=== PATIENT | female | born 1955 | race Caucasian/White ===

== ENCOUNTER 2018-07-22 18:50 | Emergency (ER) | payer OTHER ==
--- OUTSIDE RECORDS SUMMARY | 2018-07-22 18:54 | XMS REPORT | Continuity of Care Document ---
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 Onset: 12/10/2013 Myopia Cedrick Main O.D. Onset: 12/10/2013 Presbyopia Cedrick Main O.D. Onset: 12/10/2013 Low tension glaucoma Cedrick Main O.D. Onset: 01/10/2014 Tear film insufficiency Cedrick Main O.D. Onset: 05/13/2014 Low-tension glaucoma, right eye, mild stage Cedrick Main O.D. Onset: 11/19 Low-tension glaucoma, left eye, mild stage Cedrick Main O.D. Onset: 2014 Family History Date Family Member(s) Observation Comments General Arthritis General Cancer General Cerebrovascular Accident General Thyroid Disease General Grandparent, Sister Father Age-Related Macular Degeneration Father Blindness Mother Cataract Mother High BP Social History Type Date Description Comments Sex Unknown ETOH Use Rarely consumes alcohol Tobacco Use Start: Unknown Patient has never smoked Smoking Status Reviewed: 04/30/19 Patient has never smoked Allergies, Adverse Reactions, Alerts Active Allergies Reaction Severity Comments Date Sulfa Antibiotics 12/10/2013 Medications Active Medications SIG Qnty Indications Ordering Date Provider Latanoprost 1 drops both eyes 7.5units Cedrick Lemon, 11/15/2017 0.005% every night OD Solution Amlodipine Besylate Norvasc Unknown Tablets Propranolol HCL Unknown 20mg Tablets Zantac 75 Unknown Tablets Buspirone HCL Unknown 5mg Tablets Nasonex Unknown 50mcg/Act Suspension Lotronex Gabe Soliz DR 0.5mg Tablets Dicyclomine HCL Gabe Soliz DR 10mg Capsules Propranolol HCL Unknown 40mg Tablets Ranitidine HCL Unknown 300mg Tablets Loperamide HCL Unknown 2mg Capsules Lorazepam Take 1/2 Or 1 Unknown 1mg Tablets Tablet By Mouth AT Bedtime Fo Anxiety / Insomnia Max Roxana History Medications Latanoprost 1 drops both 7.5ml Cedrick Lemon, 11/10/2016 - 0.005% eyes every night OD 11/15/2017 Solution Latanoprost 2 drops QHS OU 5ml Cedrick Lemon, 03/16/2016 - 0.005% please dispense OD 11/10/2016 Solution two bottles monthly! Latanoprost 1 drops both 2.500ml H40.1221 Dakota Sanchez, 01/10/2014 - 0.005% eyes every night M.D. 03/16/2016 Solution Amoxicillin/Clavulan take 1 tablet by Unknown - ate Potassium mouth twice a 01/04/2018 day for 10 days 875-125mg Tablets Immunizations Description No Information Available Vital Signs Date Vital Result Comment 04/06/2018 8:57am Intraocular Pressure Right Eye 15 mmHg Intraocular Pressure Left Eye 15 mmHg 01/04/2018 9:11am Intraocular Pressure Right Eye 14 mmHg Intraocular Pressure Left Eye 15 mmHg 09/27/2017 9:18am Intraocular Pressure Right Eye 12 mmHg Intraocular Pressure Left Eye 13 mmHg 03/17/2017 8:19am Intraocular Pressure Right Eye 12 mmHg Intraocular Pressure Left Eye 11 mmHg 11/10/2016 1:12pm Intraocular Pressure Right Eye 12 mmHg Intraocular Pressure Left Eye 12 mmHg 08/04/2016 9:26am Intraocular Pressure Right Eye 12 mmHg Intraocular Pressure Left Eye 13 mmHg 03/16/2016 9:08am Intraocular Pressure Right Eye 19 mmHg Intraocular Pressure Left Eye 17 mmHg 01/28/2016 8:32am Intraocular Pressure Right Eye 18 mmHg Intraocular Pressure Left Eye 16 mmHg 02/20/2015 9:38am Intraocular Pressure Right Eye 13 mmHg Intraocular Pressure Left Eye 13 mmHg 11/19/2014 8:38am Intraocular Pressure Right Eye 14 mmHg Intraocular Pressure Left Eye 13 mmHg 08/19/2014 8:59am Intraocular Pressure Right Eye 1514 mmHg Intraocular Pressure Left Eye 1413 mmHg 05/13/2014 8:14am Intraocular Pressure Right Eye 12 mmHg Intraocular Pressure Left Eye 12 mmHg 02/11/2014 8:11am Intraocular Pressure Right Eye 16 mmHg missed dose last night Intraocular Pressure Left Eye 12 mmHg 01/10/2014 9:31am Intraocular Pressure Right Eye 15 mmHg Intraocular Pressure Left Eye 15 mmHg Cornea Thickness Left Eye 901558 m Cornea Thickness Right Eye 684142 m Pachymetry adjusted IOP Right Eye +1 Pachymetry adjusted IOP Left Eye +3 12/10/2013 3:55pm Intraocular Pressure Right Eye 16 mmHg Intraocular Pressure Left Eye 16 mmHg Results Description No Information Available Procedures Date Code Description Status 04/06/2018 16426 Fundus Photography W/Interpretation & Report Completed 04/06/2018 40315 Refraction Completed 04/06/2018 06117 Eye Exam Est Intermediate Completed 01/04/2018 24054 Oct, Optic Nerve Completed 01/04/2018 55953 Eye Exam Est Intermediate Completed 09/27/2017 21825 Visual Field Exam Extended, Unilateral Or Bilateral Completed 09/27/2017 29914 Eye Exam Est Intermediate Completed 03/17/2017 38425 Eye Exam Est Comprehensive Completed 03/17/2017 26887 Refraction Completed 03/17/2017 95518 Fundus Photography W/Interpretation & Report Completed 11/10/2016 12080 Oct, Optic Nerve Completed 11/10/2016 09141 Eye Exam Est Intermediate Completed 08/04/2016 06024 Visual Field Exam Extended, Unilateral Or Bilateral Completed 08/04/2016 02476 Eye Exam Est Intermediate Completed 03/16/2016 55992 Fundus Photography W/Interpretation & Report Completed 03/16/2016 40908 Ophthalmoscopy Subsequent Completed 03/16/2016 86399 Refraction Completed 03/16/2016 15683 Eye Exam Est Intermediate Completed 01/28/2016 32121 Eye Exam Est Intermediate Completed 01/28/2016 37565 Oct, Optic Nerve Completed 02/20/2015 87764 Oct, Optic Nerve Completed 02/20/2015 89711 Visual Field Exam Extended, Unilateral Or Bilateral Completed 02/20/2015 99831 Eye Exam Est Intermediate Completed 11/19/2014 04037 Fundus Photography W/Interpretation & Report Completed 11/19/2014 12494 Refraction Completed 11/19/2014 30196 Eye Exam Est Intermediate Completed 11/19/2014 301 Contact Lens Fit $25 Completed 05/13/2014 76777 Eye Exam Est Intermediate Completed 01/10/2014 00899 Corneal Pachymetry, Unilateral/Bilateral Completed 01/10/2014 94322 Eye Exam Est Intermediate Completed 01/10/2014 92937 Gonioscopy Completed 01/10/2014 97202 Visual Field Exam Extended, Unilateral Or Bilateral Completed 01/10/2014 27183 Oct, Optic Nerve Completed 12/10/2013 29192 Fundus Photography W/Interpretation & Report Completed 12/10/2013 93519 Refraction Completed 12/10/2013 68734 Eye Exam New Comprehensive Completed 12/10/2013 301 Contact Lens Fit $25 Completed Encounters Type Date Location Provider Dx Diagnosis Office Visit 08/19/2014 Main Office Cedrick Main, 365.12 Glaucoma Low 8:30a O.D. Tension Office Visit 02/11/2014 Main Office Cedrick Main, 365.12 Glaucoma Low 8:00a O.D. Tension Plan of Treatment 07/04/2018 - Cedrick Lemon, ODH40.1232 Low-tension glaucoma, bilateral, moderate [id number] Age-related nuclear cataract, bilateralFollow up:3 mos VF, sooner PRN
--- OUTSIDE RECORDS SUMMARY | 2018-07-22 18:54 | XMS REPORT | Continuity of Care Document ---
:1955 External Reference #:[id number] Author Name Cedrick Grieron, OD Address [address] [place] [address] Care Team Providers Name Role Phone Aretha Gutierrez MD Care Team Information Supervisor Diagnostic Unavailable Aretha Gutierrez MD Primary Care Physician Unavailable Payers Date Identification Numbers Payment Provider Subscriber Effective: 2013 Policy Number: [id number] [employer] Nedra Remy PayID: [id number] [address] [place] [address] Advance Directives Description No Information Available Problems [...] Ordering Date Provider Latanoprost 1 drops both 7.5units Cedrick Lemon, 11/15/2017 0.005% eyes every night OD Solution Desloratadine take 1 tablet by Unknown 5mg mouth once daily Tablets Lorazepam Take 1/2 Or 1 Unknown 1mg Tablets Tablet By Mouth AT Bedtime Fo Anxiety / Insomnia Max Roxana Loperamide HCL Unknown 2mg Capsules Ranitidine HCL Unknown 300mg Tablets Propranolol HCL Unknown 40mg Tablets Dicyclomine HCL Gabe Soliz DR 10mg Capsules Lotronex Gabe Soliz DR 0.5mg Tablets Nasonex Unknown 50mcg/Act Suspension Buspirone HCL Unknown 5mg Tablets Zantac 75 Unknown Tablets Propranolol HCL Unknown 20mg Tablets Amlodipine Besylate Norvasc Unknown Tablets History Medications Latanoprost 1 drops both 7.5ml [...] Available Vital Signs Date Vital Result Comment 07/04/2018 8:39am Intraocular Pressure Right Eye 14 mmHg Intraocular Pressure Left Eye 14 mmHg 04/06/2018 8:57am Intraocular Pressure Right Eye 15 [...] Eye 15 mmHg Cornea Thickness Left Eye 163876 m Cornea Thickness Right Eye 549963 m Pachymetry adjusted IOP Right Eye +1 Pachymetry adjusted IOP Left Eye +3 12/10/2013 3:55pm Intraocular Pressure Right Eye 16 mmHg Intraocular Pressure Left Eye 16 mmHg Results Description No Information Available Procedures Date Code Description Status 07/04/2018 94636 Eye Exam Est Intermediate Completed 04/06/2018 61744 Fundus Photography W/Interpretation & Report Completed 04/06/2018 95111 Refraction Completed 04/06/2018 17740 Eye Exam Est Intermediate Completed 01/04/2018 50800 Oct, Optic Nerve Completed 01/04/2018 58395 Eye Exam Est Intermediate Completed 09/27/2017 65874 Visual Field Exam Extended, Unilateral Or Bilateral Completed 09/27/2017 54020 Eye Exam Est Intermediate Completed 03/17/2017 32349 Eye Exam Est Comprehensive Completed 03/17/2017 99346 Refraction Completed 03/17/2017 23454 Fundus Photography W/Interpretation & Report Completed 11/10/2016 80627 Oct, Optic Nerve Completed 11/10/2016 79177 Eye Exam Est Intermediate Completed 08/04/2016 05153 Visual Field Exam Extended, Unilateral Or Bilateral Completed 08/04/2016 43947 Eye Exam Est Intermediate Completed 03/16/2016 71428 Fundus Photography W/Interpretation & Report Completed 03/16/2016 12917 Ophthalmoscopy Subsequent Completed 03/16/2016 25738 Refraction Completed 03/16/2016 52244 Eye Exam Est Intermediate Completed 01/28/2016 20494 Eye Exam Est Intermediate Completed 01/28/2016 93024 Oct, Optic Nerve Completed 02/20/2015 96511 Oct, Optic Nerve Completed 02/20/2015 74385 Visual Field Exam Extended, Unilateral Or Bilateral Completed 02/20/2015 93055 Eye Exam Est Intermediate Completed 11/19/2014 29960 Fundus Photography W/Interpretation & Report Completed 11/19/2014 81115 Refraction Completed 11/19/2014 52505 Eye Exam Est Intermediate Completed 11/19/2014 301 Contact Lens Fit $25 Completed 05/13/2014 18671 Eye Exam Est Intermediate Completed 01/10/2014 88446 Corneal Pachymetry, Unilateral/Bilateral Completed 01/10/2014 09111 Eye Exam Est Intermediate Completed 01/10/2014 74065 Gonioscopy Completed 01/10/2014 45883 Visual Field Exam Extended, Unilateral Or Bilateral Completed 01/10/2014 02767 Oct, Optic Nerve Completed 12/10/2013 72584 Fundus Photography W/Interpretation & Report Completed 12/10/2013 11411 Refraction Completed 12/10/2013 91445 Eye Exam New Comprehensive Completed 12/10/2013 301 Contact Lens Fit $25 Completed Encounters Type Date Location Provider Dx Diagnosis Office Visit 08/19/2014 Main Office Cedrick Main, 365.12 Glaucoma Low 8:30a O.D. Tension Office Visit 02/11/2014 Main Office Cedrick Main, 365.12 Glaucoma Low 8:00a O.D. Tension Plan of Treatment 07/04/2018 - Cedrick Lemon, ODH40.1232 Low-tension glaucoma, bilateral, moderate [id number] Age-related nuclear cataract, bilateralFollow up:3 mos VF, sooner PRN
--- OUTSIDE RECORDS SUMMARY | 2018-07-22 18:55 | XMS REPORT | Continuity of Care Document ---
:1955 External Reference #:[id number] Author Name CLIFFORD Shea Address [address] [facility] [place] [address] Care Team Providers Name Role Phone Aretha Gutierrez Care Team Information Pocket Marker Unavailable Aretha Gutierrez Primary Care Physician Unavailable Payers Date Identification Numbers Payment Provider Subscriber Effective: 2017 Policy Number: [id number] Howie Haddad Pre-Medicare Nedra Ruffin Group Number: [id number] [address] PayID: [id number] [place] [address] Effective: 2017 Policy Number: [id number] Erlinmala Ruffin Expires: 2017 PayID: [id number] [address] [place] [address] Effective: 2012 Policy Number: [id number] [facility] Ex[facility]: 2017 Group Number: [id number] [id number] Group Name: [facility] [place] [address] PayID: [id number] Advance Directives Description No Information Available Problems Active Problems Provider Date Essential hypertension Marixa Sanders M.D. Onset: 12/04/2010 Anxiety state Marixa Sanders M.D. Onset: 12/04/2010 Essential tremor Marixa Sanders M.D. Onset: 12/04/2010 Impaired fasting glycaemia Marixa Sanders M.D. Onset: 01/08/2011 Enthesopathy Marixa Sanders M.D. Onset: 01/08/2011 Irritable bowel syndrome Aretha Gutierrez M.D. Onset: 03/16/2013 Gastroesophageal reflux disease Aretha Gutierrez M.D. Onset: 03/16/2013 Allergic rhinitis Aretha Gutierrez M.D. Onset: 03/16/2013 Psoriasis Aretha Gutierrez M.D. Onset: 01/28/2015 Acute sinusitis Mark West M.D. Onset: 11/02/2016 Low tension glaucoma Aretha Gutierrez M.D. Onset: 09/09/2016 Family History Date Family Member(s) Observation Comments General No fam hx lung,colon, breast CA. no uterine, ovarian, cervical ca. No DM Father due to MA () - age 75. out of the blue. Mother Hypertension Mother Anxiety Number of Children 3 First Daughter Wilda First Daughter goiter. Second Daughter Priya Second Daughter asthma Third Daughter Merari Number of Siblings Siblings: 4 Order Patient is the oldest of five children. No MA, DM. Some arthritis Number of Grandchildren 7, 4 grandsons and 3 granddaughters Paternal Grandfather due to MA () - at age 69 Paternal Grandmother due to Pulmonary () Embolus Maternal Grandfather due to Stroke () Maternal Grandmother Rheumatoid Arthritis Social History Type Date Description Comments Sex Unknown Marital Status Patient is Living Situation Lives with spouse. 2 daughters in the area, 1 in [place]. 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 Recreational Drug Use Denies Drug Use Tobacco Use Start: Unknown Nonsmoker Smoking Status Reviewed: 06/28/18 Nonsmoker Exercise Type/Frequency Exercises regularly lots Current of yardwork. Allergies, Adverse Reactions, Alerts Active Allergies Reaction Severity Comments Date Sulfa 12/29/2009 Zoloft made symptoms worse, more diarrhea 11/20/2012 Inactive Allergies Nka 04/14/1998 Medications Active Medications SIG Qnty Indications Ordering Date Provider Amoxicillin/Clavulana 1 by mouth twice 20tabs J01.90 Donnie Hogue, te Potassium a day x 10 M.D. 875-125mg Tablets Soluble Take one daily. K58.0 Donnie Hogue, 06/28/2018 Fiber/Probiotics M.D. Chewtabs Shingrix inject subq. 2units Z23 Aretha Simons 11/03/2017 50mcg repeat injection Jarrell Gutierrez Suspension Rec from 2-6 months after first injection Entex T 1 po q 12 hrs prn 90tabs J01.90 Brenna 06/10/2017 60-375mg nasal congestion Keanu, AR MANAGER Tablets Buspirone HCL 1 by mouth twice 60tabs F41.9 Carmen Mirna 09/09/2016 7.5mg daily Ware, REVENUE MANAGER Tablets Desoximetasone use as directed 60gm Aretha Simons 06/06/2014 0.25% on affected Jarrell Gutierrez Cream areas. Dicyclomine HCL take 1 capsule by 120caps K58.0 Aretha Simons 05/16/2013 10mg mouth four times Jarrell Gutierrez Capsules a day Prior To Meals And AT Bedtime as Needed For Irritable Bowel Symptoms Lorazepam take 1/2 or 1 tab 40tabs F43.22 Aretha Simons 11/08/2012 1mg Tablets by mouth at Jarrell Gutierrez bedtime for anxiety/insomnia Ranitidine HCL 1 by mouth every 30tabs Aretha Simons 07/10/2012 300mg day Jarrell Gutierrez Tablets Propranolol HCL take one tablet 60tabs Aretha Simons 12/04/2010 40mg by mouth twice a Jarrell Gutierrez Tablets day Clarinex 1 po qd 30tabs Donnie Hogue, 08/20/2004 5mg Tablets Jarrell Nasonex 2 sprays each 1units Maribel Estrada, 11/22/2000 50mcg/Act nostril every day AR MANAGER Suspension Norvasc 1/2 tab every day 15tabs Carmen Mirna 10mg Tablets Ware, REVENUE MANAGER Latanoprost instill 1 drop 2.5units Unknown 0.005% into both eyes at Solution bedtime Loperamide HCL take 1 capsule by kasia Simons 2mg mouth once daily Jarrell Gutierrez Capsules History Medications Amoxicillin/Clavulanate 1 by mouth 20tabs J01.90 Mamadou Acosta 01/23/2018 - Potassium twice a day x MD Raffi 06/28/2018 875-125mg Tablets 10 Amoxicillin/Clavulanate 1 by mouth 28tabs J01.90 Brenna 06/10/2017 - Potassium twice a day x Keanu, AR MANAGER 11/02/2017 875-125mg Tablets 10-14 days Amoxicillin/Clavulanate 1 by mouth 28tabs J01.90 Carmen Bradley 02/07/2017 - Potassium twice a day x JULIO CÉSAR Ware 06/10/2017 875-125mg Tablets 10-14 days Levofloxacin 1 by mouth 10tabs J01.80 Mark Acosta 11/02/2016 - 500mg Tablets every day Jarrell West 02/07/2017 Zostavax inject subq Aretha Simons 09/09/2016 - 05558Nzv/0.65ML Suspension Jarrell Gutierrez 06/10/2017 Rec Amoxicillin/Clavulanate 1 by mouth tabs J01.80 Aretha Simons 09/09/2016 - Potassium twice a day x Jarrell Gutierrez 11/02/2016 875-125mg Tablets 10-14 days Tamiflu 1 by mouth 10caps Brenna 04/26/2016 - 75mg Capsules twice a day [facility], [facility] 09/09/2016 Amoxicillin/Clavulanate 1 by mouth 28tabs R05 Brenna 04/26/2016 - Potassium twice a day [facility], [facility] 09/09/2016 875-125mg Tablets with food x 14d Amoxicillin/Clavulanate 1 by mouth 28tabs J01.90 Maribel Estrada, 02/12/2016 - Potassium twice a day [facility] 04/26/2016 875-125mg Tablets with food x 14d Amoxicillin/Clavulanate 1 by mouth 20tabs J01.90 Maribel Estrada, 08/14/2015 - Potassium twice a day [facility] 02/12/2016 875-125mg Tablets with food Xifaxan 1 by mouth 3 14tabs K58.0 Aretha Simons 06/03/2015 - 550mg Tablets times daily x Jarrell Gutierrez 08/14/2015 14 days. Vitamin D (Ergocalciferol) take 1 capsule 8caps Aretha Simons 04/05/2015 - by mouth once Jarrell Gutierrez 11/02/2016 [id number] Capsules weekly for 8 weeks. Methylprednisolone (Loc) take as 1pack 461.0 Brenna 11/29/2014 - 4mg directed [facility] 01/28/2015 Tablets Amoxicillin/Clavulanate take one tab by 20tabs 461.0 Entriken 11/29/2014 - Potassium mouth twice a [facility], [facility] 01/28/2015 875-125mg Tablets day x 10 days Amoxicillin/Clavulanate 1 by mouth 20tabs 461.0 Julianne Sullivan, 09/20/2014 - Potassium twice a day x REVENUE MANAGER 09/30/2014 875-125mg Tablets 10 days Desoximetasone Cream use on affected 60gm Aretha Simons 06/06/2014 - 0.25% areas as Jarrell Gutierrez 06/06/2014 directed Amoxicillin/Clavulanate 1 po bid x 10 20tabs 461.9 Jena Crane, 2013 - Potassium days Nguyễn 05/26/2013 875-125mg Tablets Off Work 11/21 And . 564.1 Aretha Simons 11/20/2012 - Medical Excuse. Jarrell Gutierrez 03/16/2013 Miralax 17 gm powder in 1Bottle K58.0 Entriken 11/08/2012 - 3350NF Powder fluid daily, as Keanu, [facility] 11/02/2016 needed Sertraline HCL 1 po qd 60tabs 311 Brenna 11/08/2012 - 50mg Tablets [facility] 11/20/2012 TENS Unit to use as 1units Jena Crane, 05/11/2012 - [facility] directed dx: Nguyễn 05/31/2012 torticollis 723.5 Augmentin 1 po bid with 14tabs Mamadou Lazo 04/25/2012 - 500-125mg Tablets meals Jarrell Gallagher 11/20/2012 Cyclobenzaprine HCL 1 po tid prn 20tabs Jena Crane, 11/09/2011 - 10mg Tablets for muscle Afnp-C 03/19/2014 spasm Naproxen 1 po tid prn 60tabs 723.5 Jena Crane, 10/28/2011 - 375mg Tablets Afnp-C 03/19/2014 Physical Therapy treatment and 723.5 Jena Crane, 10/28/2011 - evaluation of Afnp-C 01/13/2012 neck pain/ torticollis Amoxicillin/Clavulanate 1 po bid for 10 20tabs Esequiel Conway 04/23/2011 - Potassium harleen Salter M.D. 05/03/2011 875-125mg Tablets Buspirone HCL take 2 tab by 60tabs F41.9 Aretha Simons 08/20/2010 - 5mg Tablets mouth daily Jarrell Gutierrez 09/09/2016 Cipro 1 po bid for 5 10tabs Brenna goetz 12/30/2009 - 500mg Tablets harleen Guzman M.D. 12/04/2010 Bactrim DS 1 po bid 20tabs Mark Acosta 05/27/2008 - 800-160 Tablets Jarrell West 12/29/2009 Levaquin 1 po qd for 10 10tabs Mamadou Lazo 04/09/2008 - 500mg Tablets harleen Gallagher M.D. 05/23/2008 Augmentin 1 po bid with 28tabs 461.9 Maribel Estrada 02/14/2008 - 875mg Tablets food x 14D AR MANAGER 03/12/2008 Note For Work please excuse 729.5 Darrell Ayala 02/04/2007 - from work until Jarrell Eid 02/14/200802/09 due to an injury. able to return 02/09 without restriction. thanks Dovonex Scalp apply bid as 60ml Brenna von 04/27/2006 - 0.005% Marcia'n Directed, as Jarrell Guzman 11/02/2016 needed Augmentin 1 PO bid 20tabs Vangie 01/04/2006 - [facility] Take Afnp-C With Food HCTZ 1 PO qd 30units Brenna goetz 08/12/2005 - 12.5mg Jarrell Guzman 12/04/2010 Robitussin A-C 1-2 tsp po q 120cc Vangie 06/04/2005 - 100mg;10mg/5ML Syrup 4hrs prn cough Oksana, 07/11/2007 Afnp-C Levaquin 1 po qd 14tabs Brenna goetz 03/31/2005 - 500mg Tablets Jarrell Guzman 06/04/2005 Mucinex 600 MG 1-2 PO 20units Brenna goetz 03/31/2005 - bid Jarrell Guzman 06/04/2005 Levaquin 1 PO qd X 14D 14tabs Maribel Estrada, 01/14/2005 - 500mg Tablets AR MANAGER 02/12/2005 Flexeril 1 PO tid prn 30tabs Maribel Estrada, 01/14/2005 - 10mg Tablets Muscle Spasm AR MANAGER 03/31/2005 Levaquin 1 qd 10units Mamadou Lazo 06/15/2004 - 500mg Jarrell Gallagher 03/31/2005 Levaquin 1 qd x10 days 10units Vangie 03/31/2004 - 500mg [place], 06/12/2004 Afnp-C Augmentin 1 bid 20units Jena Crane, 02/28/2004 - 500mg Afnp-C 03/31/2004 Augmentin 1 bid For 10 20units Maribel Estrada, 08/20/2003 - 500mg Days AR MANAGER 08/30/2003 Levaquin 1 qd 7units Maribel Estrada, 08/02/2003 - 500mg AR MANAGER 03/24/2004 Norflex 1 po bid 30units Kvng Lazo 03/25/2003 - 100mg Jarrell Lemons 03/24/2004 Levaquin 1 qd 10units Kvng Lazo 03/25/2003 - 500mg Jarrell Lemons 04/04/2003 Iron Tab OTC 1 PO bid 100units Kvng Lazo 09/13/2002 - 325mg Jarrell Lemons 03/31/2005 Ciprofloxacin bid.3 Days 6units Naldo Chu 11/28/2001 - 500mg Jarrell Quevedo 12/01/2001 Entex Pse 1 bid prn 20units Jena Crane, 07/03/2001 - Congestion Afnp-C 07/13/2001 Amoxicillin 1 Tablet 3 30tabs Vangie 07/03/2001 - 500mg Tablets Times Daily Jocelynnthaddeus, 07/20/2007 Afnp-C Out Of Work Will Be Out Of Naldo Chu 02/22/2001 - Work From Jarrell Quevedo 04/03/2001 02/09/01 Until Seen By A Vascular Specialist Out Of Work Until Out Of Work Naldo Chu 02/16/2001 - Until Jarrell Quevedo 03/08/2001 Re-Eval 02/22/01 Return To Work May Return To Naldo Chu 02/14/2001 - Work Jarrell Quevedo 03/06/2001 On 02/20/01 Motrin 1 tid 90units 729.5 Brennagary goetz 02/07/2001 - 600mg Jarrell Guzman 12/29/2009 Zithromax 2 Tabs Day 1 6units Jena Crane, 11/22/2000 - 250mg Afjulio césar-C 11/27/2000 1 Tab qd Days 2 Thru 5 Entex Pse 1 bid prn 20units Jena Gonzaleze, 11/22/2000 - Congestion Afnp-C 12/06/2000 Augmentin 1 PO bid 20units Donnie Ayala 08/05/2000 - 500mg Jarrell Hogue 08/15/2000 Duravent Da 1 PO bid 20units Donnie Ayala 08/05/2000 - Jarrell Hogue 08/15/2000 Dovonex apply to rash 60GR Mamadou Lazo 12/19/1999 - .005% qd Jarrell Gallagher 04/27/2006 Z-Pack as Directed Naldo Chu 12/19/1999 - Jarrell Quevedo 08/05/2000 Levaquin 1 qd 14units Mark Acosta 11/20/1999 - 500mg Jarrell West 05/27/2008 Buspar I bid prn 60units Maribel Estrada, 11/04/1999 - 5mg AR MANAGER 03/31/2005 Zithromax 2 Tabs Day 1 6unreyna BlountEliot 11/04/1999 - 250mg Jarrell Quevedo 11/14/1999 1 Tab qd Days 2 Thru 5 Zyrtec 1 PO qd prn 15tabs Maribel Santiagor, 05/07/1999 - 10mg Tabs AR MANAGER 05/22/1999 Medrol Dosepack as Directed 1units Maribel Estrada, 04/29/1999 - 4mg AR MANAGER 05/05/1999 Desoximetasone Cream use on affected 60gm Aretha PrakashEliot 04/29/1999 - 0.25% areas as Jarrell Gutierrez 06/06/2014 directed Zithromax 2 Tabs Day 1 6unreyna BlountEliot 10/15/1998 - 250mg Jarrell Quevedo 10/25/1998 1 Tab qd Days 2 Thru 5 Dovonex Apply To Rash 30gm Naldo BlountEliot 04/23/1998 - .005% qd Jarrell Queveod 05/21/1998 Z-Pack as Dir 1unreyna Hitchcock Kimberley 04/03/1998 - Jarrell Quevedo 04/10/1998 Tessalon Pearls 1 PO tid prn 20tabs Vangie 03/31/1998 - 100mg Tabs For Cough [facility], 04/10/1998 Afnp-C Entex Pse 1 PO Q 12 HRS 20tabs Naldo BlountEliot 03/31/1998 - Tabs prn Head Jarrell Quevedo 04/14/1998 Congestion Zithromax 2 Tabs Day 1 6units Libertad Dickinson, 08/02/1997 - 250mg [employer]UPATIONS INSTRUCTOR-F 08/07/1997 1 Tab qd Days 2 Thru 5 Zantac one qhs 30units Aretha PrakashEliot 07/11/1997 - 300mg Jarrell Gutierrez 07/10/2012 Zantac 1 PO Q hs 30units Libertad Dickinson, 06/07/1997 - 300mg [employer] OCCUPATIONS INSTRUCTOR-F 07/07/1997 Immunizations CPT Code Status Date Vaccine Lot # [id number] Given 11/03/2017 Tdap Tetanus, W Pertussis [id number] Given 03/19/2014 Influenza Vac, Quadrivalent, Slit Virus, Im [id number] 99605 Given 12/20/2012 DO Not Use Split Influenza Virus Vaccine [id number] 96539 Given 01/07/2012 DO Not Use Split Influenza Virus Vaccine 43325 Given 12/29/2009 DO Not Use Split Influenza Virus Vaccine [id number] 27077 Given 02/08/2009 DO Not Use Split Influenza Virus Vaccine [id number] 44718 Given 10/06/2007 Tetanus And Diptheria Adult Preservative Free >7Yrs Vital Signs Date Vital Result Comment 06/28/2018 8:06am BP Systolic 130 mmHg BP Diastolic 80 mmHg Heart Rate 64 /min Body Temperature 97.7 F Respiratory Rate 16 /min Weight 139.00 lb 01/23/2018 10:43am BP Systolic 128 mmHg BP Diastolic 70 mmHg Heart Rate 68 /min Body Temperature 97.7 F Respiratory Rate 18 /min Weight 139.00 lb 11/03/2017 12:59pm BP Systolic 114 mmHg BP Diastolic 72 mmHg Heart Rate 70 /min Body Temperature 97.7 F Height 65 inches 5'5" Weight 137.00 lb BMI (Body Mass Index) 22.8 kg/m2 06/10/2017 2:35pm BP Systolic 110 mmHg BP Diastolic 82 mmHg Heart Rate 73 /min Body Temperature 97.9 F Weight 137.38 lb 02/07/2017 10:43am BP Systolic 130 mmHg BP Diastolic 80 mmHg Heart Rate 64 /min Body Temperature 98.1 F Height 65 inches 5'5" Weight 134.00 lb BMI (Body Mass Index) 22.3 kg/m2 11/02/2016 2:05pm BP Systolic 138 mmHg BP Diastolic 80 mmHg Heart Rate 68 /min Body Temperature 98.4 F Respiratory Rate 16 /min Height 65 inches 5'5" Weight 138.12 lb BMI (Body Mass Index) 23.0 kg/m2 09/09/2016 12:57pm BP Systolic 120 mmHg BP Diastolic 70 mmHg Heart Rate 60 /min Body Temperature 98.1 F Respiratory Rate 18 /min Height 65 inches 5'5" Weight 137.00 lb BMI (Body Mass Index) 22.8 kg/m2 04/26/2016 9:10am BP Systolic 110 mmHg BP Diastolic 72 mmHg Heart Rate 64 /min Body Temperature 98.8 F Respiratory Rate 16 /min Weight 139.00 lb 02/12/2016 12:55pm BP Systolic 120 mmHg BP Diastolic 70 mmHg Heart Rate 64 /min Body Temperature 97.8 F Respiratory Rate 16 /min Weight 139.38 lb 08/14/2015 2:04pm BP Systolic 112 mmHg BP Diastolic 80 mmHg Heart Rate 64 /min Body Temperature 97.9 F Respiratory Rate 16 /min Weight 139.00 lb 06/03/2015 3:15pm BP Systolic 120 mmHg BP Diastolic 80 mmHg Heart Rate 64 /min Body Temperature 98.4 F Respiratory Rate 18 /min Weight 140.00 lb 04/01/2015 9:37am BP Systolic 110 mmHg BP Diastolic 80 mmHg Heart Rate 68 /min Body Temperature 97.9 F Respiratory Rate 16 /min Height 64.5 inches 5'4.50" Weight 136.00 lb BMI (Body Mass Index) 23.0 kg/m2 01/28/2015 9:00am BP Systolic 120 mmHg BP Diastolic 86 mmHg Heart Rate 68 /min Body Temperature 98.4 F Respiratory Rate 16 /min Height 64.5 inches 5'4.50" Weight 135.00 lb BMI (Body Mass Index) 22.8 kg/m2 11/29/2014 8:20am BP Systolic 120 mmHg BP Diastolic 80 mmHg Heart Rate 66 /min Body Temperature 97.1 F Respiratory Rate 16 /min Height 65 inches 5'5" Weight 136.25 lb BMI (Body Mass Index) 22.7 kg/m2 09/20/2014 1:38pm BP Systolic 120 mmHg BP Diastolic 80 mmHg Heart Rate 64 /min Body Temperature 98.2 F Respiratory Rate 16 /min Height 65 inches 5'5" Weight 135.00 lb BMI (Body Mass Index) 22.5 kg/m2 03/19/2014 9:45am BP Systolic 130 mmHg BP Diastolic 90 mmHg Heart Rate 62 /min Body Temperature 97.2 F Respiratory Rate 16 /min Height 65 inches 5'5" Weight 133.25 lb BMI (Body Mass Index) 22.2 kg/m2 05/16/2013 10:21am BP Systolic 124 mmHg BP Diastolic 76 mmHg Heart Rate 68 /min Body Temperature 97.7 F Respiratory Rate 18 /min O2 % BldC Oximetry 98 % Height 65 inches 5'5" Weight 136.00 lb BMI (Body Mass Index) 22.6 kg/m2 03/16/2013 9:11am BP Systolic 126 mmHg BP Diastolic 80 mmHg Heart Rate 66 /min Body Temperature 98.0 F Respiratory Rate 16 /min Height 65 inches 5'5" Weight 136.12 lb BMI (Body Mass Index) 22.6 kg/m2 12/20/2012 7:59am BP Systolic 122 mmHg BP Diastolic 78 mmHg Heart Rate 64 /min Body Temperature 98.1 F Height 65 inches 5'5" Weight 138.00 lb BMI (Body Mass Index) 23.0 kg/m2 11/20/2012 6:08pm BP Systolic 136 mmHg BP Diastolic 80 mmHg Heart Rate 66 /min Body Temperature 98.0 F Respiratory Rate 16 /min Height 65 inches 5'5" Weight 140.00 lb BMI (Body Mass Index) 23.3 kg/m2 11/08/2012 8:04am BP Systolic 138 mmHg BP Diastolic 84 mmHg Heart Rate 66 /min Body Temperature 97.4 F Respiratory Rate 18 /min Height 65 inches 5'5" Weight 141.00 lb BMI (Body Mass Index) 23.5 kg/m2 08/07/2012 8:07am BP Systolic 140 mmHg BP Diastolic 82 mmHg Heart Rate 60 /min Body Temperature 97.0 F Height 65 inches 5'5" Weight 141.00 lb BMI (Body Mass Index) 23.5 kg/m2 04/25/2012 9:53am BP Systolic 130 mmHg BP Diastolic 84 mmHg Heart Rate 72 /min Body Temperature 98.8 F Respiratory Rate 16 /min Height 65 inches 5'5" Weight 142.00 lb BMI (Body Mass Index) 23.6 kg/m2 01/13/2012 9:50am BP Systolic 142 mmHg BP Diastolic 82 mmHg Heart Rate 68 /min Body Temperature 97.6 F Height 64.5 inches 5'4.50" Weight 142.00 lb BMI (Body Mass Index) 24.0 kg/m2 10/28/2011 10:52am BP Systolic 124 mmHg BP Diastolic 80 mmHg Heart Rate 64 /min Height 65.4 inches 5'5.40" Weight 142.50 lb BMI (Body Mass Index) 23.4 kg/m2 04/23/2011 3:42pm BP Systolic 130 mmHg BP Diastolic 80 mmHg Heart Rate 64 /min Body Temperature 97.3 F Height 65.4 inches 5'5.40" Weight 141.00 lb BMI (Body Mass Index) 23.2 kg/m2 01/08/2011 10:15am BP Systolic 130 mmHg BP Diastolic 82 mmHg Heart Rate 54 /min Body Temperature 97.0 F O2 % BldC Oximetry 99 % Height 65.4 inches 5'5.40" Weight 138.00 lb BMI (Body Mass Index) 22.7 kg/m2 12/04/2010 7:59am BP Systolic 130 mmHg BP Diastolic 80 mmHg Heart Rate 80 /min Body Temperature 97.5 F Respiratory Rate 20 /min Height 65.4 inches 5'5.40" Weight 135.00 lb BMI (Body Mass Index) 22.2 kg/m2 12/29/2009 10:53am BP Systolic 136 mmHg BP Diastolic 76 mmHg Heart Rate 84 /min Body Temperature 98.3 F Height 65.5 inches 5'5.50" Weight 135.00 lb BMI (Body Mass Index) 22.1 kg/m2 05/23/2008 3:08pm BP Systolic 132 mmHg BP Diastolic 80 mmHg Heart Rate 78 /min Body Temperature 97.9 F Weight 138.00 lb 04/09/2008 9:58am BP Systolic 100 mmHg BP Diastolic 70 mmHg Heart Rate 60 /min Body Temperature 98.2 F Weight 135.00 lb 02/14/2008 9:14am BP Systolic 126 mmHg BP Diastolic 78 mmHg Heart Rate 80 /min Body Temperature 98.1 F Height 65.5 inches 5'5.50" Weight 138.00 lb BMI (Body Mass Index) 22.6 kg/m2 07/04/2007 9:42am BP Systolic 120 mmHg BP Diastolic 80 mmHg Body Temperature 98.5 F Height 65.5 inches 5'5.50" Weight 140.00 lb BMI (Body Mass Index) 22.9 kg/m2 02/04/2007 12:40pm BP Systolic 120 mmHg BP Diastolic 80 mmHg Heart Rate 72 /min Body Temperature 98.2 F Height 65.5 inches 5'5.50" Weight 139.00 lb BMI (Body Mass Index) 22.8 kg/m2 05/24/2006 4:53pm BP Systolic 136 mmHg BP Diastolic 84 mmHg Body Temperature 98.1 F Height 65.5 inches 5'5.50" 01/04/2006 11:15am BP Systolic 128 mmHg BP Diastolic 80 mmHg Body Temperature 98.7 F Height 65.5 inches 5'5.50" Weight 140.00 lb BMI (Body Mass Index) 22.9 kg/m2 08/31/2005 10:01am BP Systolic 120 mmHg BP Diastolic 80 mmHg Heart Rate 80 /min Height 65.5 inches 5'5.50" Weight 134.00 lb BMI (Body Mass Index) 22.0 kg/m2 08/12/2005 11:34am BP Systolic 150 mmHg BP Diastolic 100 mmHg Heart Rate 88 /min Height 65.5 inches 5'5.50" Weight 137.00 lb BMI (Body Mass Index) 22.4 kg/m2 06/04/2005 9:39am BP Systolic 130 mmHg BP Diastolic 88 mmHg Heart Rate 76 /min Body Temperature 98.1 F Height 65.5 inches 5'5.50" 03/31/2005 5:20pm BP Systolic 120 mmHg BP Diastolic 74 mmHg Heart Rate 76 /min Body Temperature 97.8 F Height 65.5 inches 5'5.50" 01/14/2005 4:27pm BP Systolic 122 mmHg BP Diastolic 74 mmHg Heart Rate 78 /min Height 65.5 inches 5'5.50" Weight 133.00 lb BMI (Body Mass Index) 21.8 kg/m2 06/15/2004 10:08am BP Systolic 120 mmHg BP Diastolic 70 mmHg Heart Rate 72 /min Body Temperature 98.8 F Height 65.5 inches 5'5.50" Weight 130.00 lb BMI (Body Mass Index) 21.3 kg/m2 06/02/2004 1:13pm BP Systolic 128 mmHg BP Diastolic 80 mmHg Heart Rate 72 /min Body Temperature 98.5 F Height 65.5 inches 5'5.50" Weight 130.00 lb BMI (Body Mass Index) 21.3 kg/m2 03/24/2004 11:14am BP Systolic 120 mmHg BP Diastolic 70 mmHg Heart Rate 76 /min Body Temperature 97.9 F O2 % BldC Oximetry 94 % Height 65.5 inches 5'5.50" Weight 134.00 lb BMI (Body Mass Index) 22.0 kg/m2 02/28/2004 10:49am BP Systolic 138 mmHg BP Diastolic 80 mmHg Heart Rate 72 /min Body Temperature 98.1 F Height 65.5 inches 5'5.50" 08/02/2003 3:24pm BP Systolic 140 mmHg BP Diastolic 90 mmHg Body Temperature 97.1 F Height 65.5 inches 5'5.50" Weight 126.00 lb BMI (Body Mass Index) 20.6 kg/m2 05/28/2003 4:25pm BP Systolic 120 mmHg BP Diastolic 70 mmHg Heart Rate 80 /min Body Temperature 98.3 F Height 65.5 inches 5'5.50" Weight 130.00 lb BMI (Body Mass Index) 21.3 kg/m2 09/12/2002 10:54am BP Systolic 148 mmHg BP Diastolic 90 mmHg Heart Rate 84 /min Body Temperature 97.1 F Height 65.5 inches 5'5.50" Weight 127.00 lb BMI (Body Mass Index) 20.8 kg/m2 05/09/2002 10:33am BP Systolic 146 mmHg BP Diastolic 90 mmHg Heart Rate 92 /min Body Temperature 97.7 F Height 65.5 inches 5'5.50" Weight 127.00 lb BMI (Body Mass Index) 21.1 kg/m2 Right Visual Acuity Distance 20/50 Left Visual Acuity Distance 20/25 11/28/2001 11:22am BP Systolic 136 mmHg BP Diastolic 90 mmHg Body Temperature 97.6 F Height 65 inches 5'5" Weight 127.50 lb BMI (Body Mass Index) 21.3 kg/m2 07/03/2001 3:20pm BP Systolic 132 mmHg BP Diastolic 90 mmHg Body Temperature 97.9 F Height 65 inches 5'5" Weight 128.00 lb BMI (Body Mass Index) 21.3 kg/m2 02/22/2001 11:38am BP Systolic 142 mmHg BP Diastolic 98 mmHg Body Temperature 97.1 F Height 65 inches 5'5" Weight 126.00 lb BMI (Body Mass Index) 21.0 kg/m2 02/07/2001 1:15pm BP Systolic 146 mmHg BP Diastolic 90 mmHg Heart Rate 94 /min Height 65 inches 5'5" Weight 126.00 lb BMI (Body Mass Index) 21.0 kg/m2 11/22/2000 8:59am BP Systolic 142 mmHg BP Diastolic 70 mmHg Body Temperature 99.4 F Height 65 inches 5'5" Weight 129.00 lb BMI (Body Mass Index) 21.5 kg/m2 10/14/2000 3:01pm BP Systolic 122 mmHg BP Diastolic 80 mmHg Heart Rate 82 /min Height 65 inches 5'5" Weight 126.00 lb BMI (Body Mass Index) 21.0 kg/m2 08/05/2000 2:41pm BP Systolic 132 mmHg BP Diastolic 90 mmHg Body Temperature 98.5 F Height 65 inches 5'5" Weight 128.00 lb BMI (Body Mass Index) 21.3 kg/m2 11/04/1999 9:48am BP Systolic 138 mmHg BP Diastolic 80 mmHg Heart Rate 76 /min Height 65 inches 5'5" Weight 119.00 lb BMI (Body Mass Index) 19.8 kg/m2 04/29/1999 12:50pm BP Systolic 146 mmHg BP Diastolic 80 mmHg 10/15/1998 4:36pm BP Systolic 120 mmHg BP Diastolic 72 mmHg Body Temperature 97.4 F Weight 121.00 lb 05/27/1998 4:32pm Weight 124.00 lb 05/05/1998 11:17am Body Temperature 97.5 F Weight 123.00 lb 04/23/1998 1:45pm BP Systolic 110 mmHg BP Diastolic 80 mmHg Body Temperature 98.2 F Weight 124.00 lb 04/14/1998 4:42pm Weight 127.00 lb 03/31/1998 4:34pm BP Systolic 138 mmHg BP Diastolic 80 mmHg Body Temperature 97.1 F Weight 129.00 lb 09/11/1997 12:26pm Body Temperature 97.3 F Weight 124.00 lb 08/02/1997 3:51pm BP Systolic 148 mmHg BP Diastolic 90 mmHg Body Temperature 97.0 F Weight 127.00 lb Results Test Date Facility Test Result H/L Range Note Comprehensive Metabolic 10/27/2017 [facility] Sodium 142 mEq/L 134- 149 Prof Potassium 5.1 mEq/L 3.6-5.5 Chloride 107 mEq/L 94-112 Carbon Dioxide 29 mEq/L 21-32 Glucose 108 mg/dL High 70-105 BUN 11 mg/dL 6-26 Creatinine 0.7 mg/dL 0.6-1.4 BUN/Creat Ratio 15.7 CALC 8.0-36.0 Calcium 9.6 mg/dL 8.6-10.2 Total Protein 6.9 g/dL 6.4-8.3 Albumin 4.8 g/dL 3.8-5.5 Globulin 2.1 g/dL 2.0-4.8 A/G Ratio 2.3 CALC 0.6-2.3 Alk. Phosphatase 70 U/L 30-110 Alt (SGPT) 12 U/L 7-35 Ast (Sgot) 12 U/L 5-34 Total Bilirubin 0.5 mg/dL 0.2-1.3 GFR Non- >60 ml/min/1.73m^ >=60 GFR >60 ml/min/1.73m^ >=60 Lipid Profile 10/27/2017 [facility] Cholesterol 241 mg/dL High 120- 200 Triglycerides 230 mg/dL High 30-200 HDL Cholesterol 52 mg/dL 30-85 LDL (Calculated) 143 CALC High 0-129 VLDL Cholesterol 46 mg/dL 0-50 HDL Risk Factor 4.6 CALC High 0.0-4.4 CBC Electronic Fma 10/27/2017 [facility] WBC 7.1 x10^3/UL 4.0-10.0 RBC 4.58 x10^6/UL 3.93-6.00 HGB 13.1 g/dL 12.0-17.0 HCT 39 % 35-50 MCV 85.6 fL 80.0-95.0 MCH 28.6 pg 25.6-32.2 MCHC 33.4 g/dL 32.2-36.0 RDW-CV 13.3 % 11.6-14.4 PLT 313 x10^3/UL 163-400 MPV 8.9 fL Low 9.4-12.4 Robert# 4.82 x10^3/UL 1.56-6.13 Lymph# 1.45 x10^3/UL 1.18-3.74 [place]# 0.63 x10^3/UL 0.24-0.82 Eos # 0.2 x10^3/UL 0.0-0.5 Baso # 0.04 x10^3/UL 0.01-0.08 Robert% 67.9 % 34.0-70.0 Lymph % 20.4 % 20.0-52.0 [place]% 8.9 % 5.0-12.0 Eos% 2.1 % 0.7-7.0 Baso% 0.6 % 0.1-1.2 Laboratory test finding 10/27/2017 [facility] TSH 3.19 mIU/L 0.50- 6.00 Comprehensive Metabolic 09/02/2016 [facility] Sodium 140 mEq/L 134- 149 Prof Potassium 4.5 mEq/L 3.6-5.5 Chloride 99 mEq/L 94-112 Carbon Dioxide 27 mEq/L 21-32 Glucose 104 mg/dL 70-105 BUN 11 mg/dL 6-26 Creatinine 0.7 mg/dL 0.6-1.4 BUN/Creat Ratio 15.7 CALC 8.0-36.0 Calcium 9.9 mg/dL 8.6-10.2 Total Protein 6.8 g/dL 6.4-8.3 1 Albumin 4.9 g/dL 3.8-5.5 2 Globulin 1.9 g/dL Low 2.0-4.8 A/G Ratio 2.6 CALC High 0.6-2.3 Alk. Phosphatase 67 U/L 30-110 Alt (SGPT) 12 U/L 7-35 Ast (Sgot) 11 U/L 5-34 Total Bilirubin 0.5 mg/dL 0.2-1.3 GFR Non- >60 ml/min/1.73m^ >=60 GFR >60 ml/min/1.73m^ >=60 Lipid Profile 09/02/2016 [facility] Cholesterol 224 mg/dL High 120- 200 Triglycerides 178 mg/dL 30-200 HDL Cholesterol 51 mg/dL 30-85 LDL (Calculated) 137 CALC High 0-129 VLDL Cholesterol 36 mg/dL 0-50 HDL Risk Factor 4.4 CALC 0.0-4.4 Complete Blood Count 09/02/2016 [facility] WBC 5.5 x10^3/UL 3.6-9.6 RBC 4.50 x10^6/UL 3.90-5.70 HGB 13.2 g/dL 12.1-17.2 HCT 39 % 36-50 MCV 86.0 fL 82.2-97.4 MCH 29.2 pg 27.6-33.3 MCHC 33.8 g/dL 33.0-35.5 RDW 14.0 % High 11.6-13.7 PLT 301 x10^3/UL 150-400 MPV 6.3 fL Low 7.4-10.4 Gran # 3.9 x10^3/UL 1.5-7.2 Lymph# 1.3 x10^3/UL 0.7-4.9 [place]# 0.3 x10^3/UL 0.1-0.9 Gran % 69.1 % 42.2-75.2 Lymph % 25.4 % 20.5-51.1 [place]% 5.5 % 1.7-9.3 Laboratory test 09/02/2016 [facility] TSH 2.03 mIU/L 0.50-6.00 finding Influenza A&B-fma 04/26/2016 [facility] Influenza A positive # (607)- - Influenza B negative Laboratory test 04/01/2015 [facility] Vitamin D25 23 Low 30-100 3 finding Laboratory test 01/09/2015 [facility] TSH 1.87 mIU/L 0.50-6.00 4 finding Complete Blood Count 01/09/2015 [facility] WBC 5.4 3.6-9.6 x10^3/UL RBC 4.63 x10^6/UL 3.90-5.70 HGB 13.6 g/dL 12.1-17.2 HCT 40 % 36-50 MCV 86.0 fL 82.2-97.4 MCH 29.4 pg 27.6-33.3 MCHC 34.0 g/dL 33.0-35.5 RDW 13.6 % 11.6-13.7 PLT 311 x10^3/UL 150-400 MPV 6.5 fL Low 7.4-10.4 Gran # 4.0 x10^3/UL 1.5-7.2 Lymph# 1.2 x10^3/UL 0.7-4.9 [place]# 0.2 x10^3/UL 0.1-0.9 Gran % 71.5 % 42.2-75.2 Lymph % 23.4 % 20.5-51.1 [place]% 5.1 % 1.7-9.3 Lipid Profile 01/09/2015 [facility] Cholesterol 247 mg/dL High 120- 200 Triglycerides 207 mg/dL High 30-200 HDL Cholesterol 53 mg/dL 30-85 LDL (Calculated) 153 CALC High 0-129 VLDL Cholesterol 41 mg/dL 0-50 HDL Risk Factor 4.7 CALC High 0.0-4.4 Comprehensive Metabolic Prof 01/09/2015 [facility] Sodium 142 mEq/L 134-149 Potassium 5.3 mEq/L 3.6-5.5 Chloride 102 mEq/L 94-112 Carbon Dioxide 26 mEq/L 21-32 Glucose 108 mg/dL High 70-105 5 BUN 10 mg/dL 6-26 Creatinine 0.7 mg/dL 0.6-1.4 BUN/Creat Ratio 14.3 CALC 8.0-36.0 Calcium 9.8 mg/dL 8.6-10.2 Total Protein 7.0 g/dL 6.4-8.3 Albumin 4.5 g/dL 3.8-5.5 Globulin 2.5 g/dL 2.0-4.8 A/G Ratio 1.8 CALC 0.6-2.3 Alk. Phosphatase 72 U/L 30-110 Alt (SGPT) 9 U/L 7-35 Ast (Sgot) 9 U/L 5-34 Total Bilirubin 0.6 mg/dL 0.2-1.3 GFR Non- >60 ml/min/1.73m^ >=60 GFR >60 ml/min/1.73m^ >=60 Cytology Non-Director [employer] 04/25/2014 [facility] [place] RUN DATE: 6 04/25/ <SEE NOTE> Thyroid Autoantibodies 03/20/2014 [facility] Thyroid Peroxidase 0.34 IU/mL N <9 7, 8 Profile Antibodies Thyroglobulin Tumor 03/20/2014 [facility] Thyroglobulin <1.8 IU/mL N <4.0 Marker Antibody Thyroglobulin Tumor Marker 5.5 ng/mL Abnormal 9 Thyroglobulin Interpretation See Comment N 10 Laboratory test finding 03/19/2014 [facility] Free T4 1.47 ng/dL 0.75-1.54 TSH 1.62 mIU/L 0.50-6.00 Basic Metabolic Profile 03/19/2014 [facility] Sodium 141 mEq/L 134- 149 Potassium 5.5 mEq/L 3.6-5.5 Chloride 103 mEq/L 94-112 Carbon Dioxide 26 mEq/L 21-32 Glucose 120 mg/dL High 70-105 11 BUN 12 mg/dL 6-26 Creatinine 0.7 mg/dL 0.6-1.4 BUN/Creat Ratio 17.1 CALC 8.0-36.0 Calcium 10.6 mg/dL High 8.6-10.2 12 Ua - Non Micro (Fma) 03/16/2013 [facility] Appearance CLEAR (607)- - Color YELLOW Glucose NEG Bilirubin NEG Ketones NEG SP Grav 1.015 Blood NEG PH 7.5 Protein NEG Urobil 0.2 Nitrite NEG Leukocytes (Fma/[facility]rex) NEG Comprehensive Metabolic Prof 02/15/2013 [facility] Albumin 4.9 g/dL 3.8-5.5 Alk. Phos. 66 U/L 30-110 Alt (SGPT) 9 U/L 7-35 Ast (Sgot) 9 U/L 5-34 BUN 12 mg/dL 6-26 Calcium 9.7 mg/dL 8.6-10.2 Chloride 102 mEq/L 94-112 Creatinine 0.8 mg/dL 0.6-1.4 Carbon Dioxide 25 mEq/L 21-32 Glucose 107 mg/dL High 70-105 13 Sodium 140 mEq/L 134-149 Total Bilirubin 0.8 mg/dL 0.2-1.3 Total Protein 7.1 g/dL 6.3-8.1 Potassium 4.8 mEq/L 3.6-5.5 Globulin 2.2 g/dL 2.0-4.8 A/G Ratio 2.3 Calc 0.6-2.3 BUN/Creat Ratio 14.9 Calc 8.0-36.0 Lipid Profile 02/15/2013 [facility] Cholesterol 207 mg/dL High 120- 200 HDL 39 mg/dL 30-85 Triglycerides 178 mg/dL 30-200 HDL Risk Factor 5.3 CALC High 0.0-4.4 LDL (Calculated) 132 CALC High 0-129 VLDL (Calculated) 36 mg/dL 0-50 Laboratory test finding 02/15/2013 [facility] TSH 1.77 mIU/L 0.50- 6.00 CBC Electronic (a) 02/15/2013 [facility] WBC 5.1 3.6-9.6 (607)- - RBC 4.73 3.90-5.70 Hemoglobin (Fma/CMC/CTX) 13.5 g/dL 12.1 - 17.2 Hematocrit (Fma/CMC/CTX) 41.4 % 36.1 - 50.3 Platelets 300 10^3/ul 150-400 Lymph% 23.1 20.5-51.1 Mixed% 5.2 Neutrophils % 71.7 Mean Corpuscular Vol 88 82.2-97.4 Mean Corpuscular Hemoglobin 28.5 27.6-33.3 Mean Corpuscular Hemo Concen 32.5 32.0-36.0 RDW 12.5 11.6-13.7 Mean Platelet Volume 6.2 Low 6.5-11.0 Laboratory test finding 01/18/2012 [facility] Free T4 1.42 ng/dL 0.75-1.54 TSH 1.86 mIU/L 0.50-6.00 Comprehensive Metabolic Prof 01/18/2012 [facility] Albumin 4.8 g/dL 3.8-5.5 Alk. Phos. 69 U/L 30-110 Alt (SGPT) 11 U/L 7-35 Ast (Sgot) 12 U/L 5-34 BUN 12 mg/dL 6-26 Calcium 9.2 mg/dL 8.6-10.2 Chloride 105 mEq/L 94-112 Creatinine 0.8 mg/dL 0.6-1.4 Carbon Dioxide 25 mEq/L 21-32 Glucose 107 mg/dL High 70-105 14 Sodium 139 mEq/L 134-149 Total Bilirubin 0.7 mg/dL 0.2-1.3 Total Protein 6.8 g/dL 6.3-8.1 Potassium 4.4 mEq/L 3.6-5.5 Globulin 2.1 g/dL 2.0-4.8 A/G Ratio 2.3 Calc High 0.6-2.2 BUN/Creat Ratio 14.1 Calc 8.0-36.0 Lipid Profile 01/18/2012 [facility] Cholesterol 227 mg/dL High 120- 200 HDL 42 mg/dL 30-85 Triglycerides 179 mg/dL 30-200 HDL Risk Factor 5.4 CALC High 0.0-4.4 LDL (Calculated) 149 CALC High 0-129 VLDL (Calculated) 36 mg/dL 0-50 Lipid Profile 12/04/2010 [facility] Cholesterol 235 mg/dL High 120- 200 HDL 56 mg/dL 30-85 Triglycerides 204 mg/dL High 30-200 HDL Risk Factor 4.2 CALC High 0.0-4.0 LDL (Calculated) 139 CALC High 0-129 VLDL (Calculated) 41 mg/dL 0-50 Laboratory test 12/04/2010 [facility] Urine Microalbumin <2.9 finding (607)- - (Fma) Ua - Non Micro (Fma) 12/04/2010 [facility] Appearance yellow (607)- - Color clear Glucose neg Bilirubin neg Ketones neg SP Grav 1.010 Blood neg PH 7.0 Protein neg Urobil 0.2 Nitrite neg Leukocytes (Fma/CMC/Centrex) neg Comprehensive Metabolic Prof 12/04/2010 [facility] Albumin 5.3 g/dL 3.8-5.5 Alk. Phos. 80 U/L 30-110 Alt (SGPT) 10 U/L 7-35 Ast (Sgot) 11 U/L 5-34 BUN 11 mg/dL 6-26 Calcium 10.2 mg/dL 8.6-10.2 Chloride 102 mEq/L 94-112 Creatinine 0.7 mg/dL 0.6-1.4 Carbon Dioxide 24 mEq/L 21-32 Glucose 105 mg/dL 70-105 Sodium 140 mEq/L 134-149 Total Bilirubin 0.8 mg/dL 0.2-1.3 Total Protein 7.7 g/dL 6.3-8.1 Potassium 4.0 mEq/L 3.6-5.5 Globulin 2.4 g/dL 2.0-4.8 A/G Ratio 2.2 Calc 0.6-2.2 BUN/Creat Ratio 14.8 Calc 8.0-36.0 Ua - Micro (Fma) 12/29/2009 [facility] Appearance clear (607)- - Color yellow Glucose, Urine (Fma/CMC/CTX) neg Bilirubin neg Ketones neg SP Grav 1.015 Blood small # PH 5.5 Protein neg Urobil 0.2 Nitrite neg Leukocytes (Fma/CMC/[facility]rex) neg Hyaline - /Lpf Granular - /Lpf WBC (Fma,Centrex) 0-1 RBC 5-10 Mucus (Fma/CBC/Centrex) sm amt /Lpf # Epith trace /Lpf # Bacteria rare /Hpf # Amorphous (Fma/CMC/Centrex) - /Lpf Crystals, Fluid (Fma/CMC/CTX) - Z#Comments - Comprehensive Metabolic Prof 12/29/2009 [facility] Albumin 4.9 g/dL 3.8-5.5 Alk. Phos. 70 U/L 30-110 Alt (SGPT) 10 U/L 7-35 Ast (Sgot) 11 U/L 5-34 BUN 10 mg/dL 6-26 Calcium 10.1 mg/dL 8.6-10.2 Chloride 96 mEq/L 94-112 Creatinine 0.7 mg/dL 0.6-1.4 Carbon Dioxide 29 mEq/L 21-32 Glucose 132 mg/dL High 70-105 Sodium 138 mEq/L 134-149 Total Bilirubin 0.5 mg/dL 0.2-1.3 Total Protein 7.3 g/dL 6.3-8.1 Potassium 3.9 mEq/L 3.6-5.5 Globulin 2.4 g/dL 2.0-4.8 A/G Ratio 2.0 Calc 0.6-2.2 BUN/Creat Ratio 14.3 Calc 8.0-36.0 CBC ([facility]) 12/29/2009 [facility] WBC 7.0 3.6-9.6 (607)- - RBC 4.79 3.90-5.70 Hemoglobin (Fma/CMC/CTX) 13.9 g/dL 12.1 - 17.2 Hematocrit (Fma/CMC/CTX) 41.3 % 36.1 - 50.3 Platelets 323 10^3/ul 150-400 Lymph% 16.7 Low 20.5-51.1 Mixed% 3.4 Neutrophils % 79.9 Mean Corpuscular Vol 86 82.2-97.4 Mean Corpuscular Hemoglobin 29.1 27.6-33.3 Mean Corpuscular Hemo Concen 33.8 33.0-36.0 RDW 12.6 11.6-13.7 Mean Platelet Volume 6.3 Low 7.4-10.4 Ua - Micro ([facility]) 05/28/2003 [facility] Appearance CLEAR (607)- - Color LT. YELLOW Glucose, Urine (Fma/CMC/CTX) NEGATIVE Bilirubin NEGATIVE Ketones NEGATIVE SP Grav <=1.005 Blood TRACE-LYSED PH 7.0 Protein NEGATIVE Urobil 0.2 E.U./dL Nitrite NEGATIVE Leukocytes (Fma/CMC/[facility]rex) TRACE Hyaline -- /Lpf Granular -- /Lpf WBC'S 1-3 RBC'S 4-8 Mucus (Fma/CBC/Centrex) -- /Lpf Epith RARE Bacteria RARE Amorphous (Fma/CMC/Centrex) -- /Lpf Crystals, Urine (Fma/CMC/CTX) -- /Lpf Comments LMP: 05/02/03 Comp Metabolic 03/25/2003 [facility] Glucose, Serum 85 mg/dL 70- 118 ([facility]) (607)- - (Fma/CMC/CTX) BUN (Fma/CMC/Centrex) 8 mg/dL 6-26 Creatinine (Fma/CMC/CTX) 0.6 mg/dL 0.6-1.4 BUN/Creatinin Ratio 14.4 8.0-36 Sodium 139 134-149 Potassium 4.8 3.6-5.5 Chloride 105 mEq/L 94-112 Co2 29 21-32 Calcium (Fma/CMC/Centrex) 9.7 mg/dL 8.6-10.0 Total Protein 7.1 g/dL 6.3-8.1 Albumin (a/CMCC/Centrex) 4.7 3.8-5.5 Globulin 2.4 2.0-4.8 A/G Ratio (Fma/CMC/Centrex) 2.0 0.6-2.2 Alkaline Phosphatase (F/C/CTX) 48 U/L 30-110 Alt (SGPT) 11 10-40 Ast (Sgot) (Fma/CMC/[facility]rex) 15 U/mL 5-34 Bilirubin, Total 0.5 mg/dL 0.2-1.3 Free T4/TSH 03/25/2003 [facility] TSH 1.92 0.5-6.0 (a/CMC/Centrex) (607)- - (Fma/CMC/Centrex) uIU/ml Free T4 1.02 ng/dL 0.75-1.54 CBC Electronic ([facility]) 03/25/2003 [facility] WBC 5.9 3.6-9.6 (607)- - Lymphocytes 19.1 % Low 20.5 - 51.1 Monocytes 2.2 % 1.7-9.3 Granulocytes 78.7 % High 42.2 - 75.2 Lymphocytes 1.1 10^3/uL 0.7 - 4.9 Monocytes 0.1 10^3/uL 0.1 - 0.9 Granulocytes 4.6 10^3/uL 1.5 - 7.2 RBC 4.62 3.90-5.70 Hemoglobin (Fma/CMC/CTX) 12.9 g/dL 12.1 - 17.2 Hematocrit (Fma/CMC/CTX) 39.5 % 36.1 - 50.3 Mean Corpuscular Vol 85.5 82.2-97.4 Mean Corpuscular Hemaglobin 27.9 27.6-33.3 Mean Corpuscular Hemo Concen 32.6 Low 33.0-35.5 RDW 13.5 11.6-13.7 Platelets 272 10^3/ul 150-400 Mean Platelet Volume 7.5 Low 7.8-11.0 Ua - Micro ([facility]) 09/12/2002 [facility] Appearance CLEAR/LT YELLOW 15 (607)- - Glucose NEG Bilirubin NEG Ketones NEG SP Grav <=1.005 Blood NEG PH 7.0 Protein NEG Urobil 0.2 Nitrite NEG Leukocytes NEG Hyaline - /Lpf Granular - /Lpf WBC'S 0-1 RBC'S 0-1 Mucus - /Lpf Epith RARE Bacteria RARE Amorphous - /Lpf Crystals - /Lpf Comments - CBC Electronic ([facility]) 09/12/2002 [facility] WBC 5.4 3.6-9.6 (607)- - Lymphocytes 18.2 % Low 20.5 - 51.1 Monocytes 4.5 % 1.7-9.3 Granulocytes 77.3 % High 42.2 - 75.2 Lymphocytes 1.0 10^3/uL 0.7 - 4.9 Monocytes 0.2 10^3/uL 0.1 - 0.9 Granulocytes 4.2 10^3/uL 1.5 - 7.2 RBC 4.37 3.90-5.70 Hemoglobin (Fma/CMC/CTX) 10.8 g/dL Low 12.1 - 17.2 Hematocrit (Fma/CMC/CTX) 32.9 % Low 36.1 - 50.3 Mean Corpuscular Vol 75.3 Low 82.2-97.4 Mean Corpuscular Hemaglobin 24.7 Low 27.6-33.3 Mean Corpuscular Hemo Concen 32.8 Low 33.0-34.8 RDW 14.3 High 11.6-13.7 Platelets 317 10^3/ul 150-400 Mean Platelet Volume 8.5 7.4-10.4 Ua - Micro (a New) 05/09/2002 [facility] Appearance CLEAR LT YELLOW (607)- - Glucose NEGATIVE Bilirubin NEGATIVE Ketones NEGATIVE SP Grav <=1.005 Blood TRACE-INTACT PH 7.0 Protein NEGATIVE Urobil 0.2 Nitrite NEGATIVE Leukocytes NEGATIVE Hyaline - /Lpf Granular - /Lpf WBC'S 0-1 RBC'S 0-1 Mucus - /Lpf Epith - Bacteria - Amorphous - /Lpf Crystals - /Lpf Comments SEE DETAILS 16 CBC Electronic ([facility]) 05/09/2002 [facility] WBC 6.5 3.6-9.6 (607)- - Lymphocytes 14.8 % Low 20.5 - 51.1 Monocytes 4.6 % 1.7-9.3 Granulocytes 80.6 % High 42.2 - 75.2 Lymphocytes 1.0 10^3/uL 0.7 - 4.9 Monocytes 0.3 10^3/uL 0.1 - 0.9 Granulocytes 5.2 10^3/uL 1.5 - 7.2 RBC 5.36 3.90-5.70 Hemoglobin (Fma/CMC/CTX) 12.9 g/dL 12.1 - 17.2 Hematocrit (Fma/CMC/CTX) 40.3 % 36.1 - 50.3 Mean Corpuscular Vol 75.1 Low 82.2-97.4 Mean Corpuscular Hemaglobin 24.1 Low 27.6-33.3 Mean Corpuscular Hemo Concen 32.1 Low 33.0-34.8 RDW 16.8 High 11.6-13.7 Platelets 297. 10^3/ul 150-400 Mean Platelet Volume 7.6 7.4-10.4 Comp Metabolic 05/09/2002 [facility] Glucose, Serum 110 mg/dL 70- 118 (Fma) (607)- - (Fma/CMC/CTX) BUN (Fma/CMC/[facility]rex) 9 mg/dL 7-26 Creatinine (Fma/CMC/CTX) 0.6 mg/dL 0.6-1.4 BUN/Creatinin Ratio 14.5 8.0-36 Sodium 145 134-149 Potassium 4.7 3.6-5.5 Chloride 104 mEq/L 94-112 Co2 23 21-32 Calcium (Fma/CMC/[facility]rex) 9.8 mg/dL 8.6-10.0 Total Protein 7.8 g/dL 6.3-8.1 Albumin (Fma/CMCC/Centrex) 5.3 3.8-5.5 Globulin 2.5 2.0-4.8 A/G Ratio (Fma/CMC/[facility]rex) 2.1 0.6-2.2 Alkaline Phosphatase 50 U/L 30-110 Alt (SGPT) 12 10-40 Ast (Sgot) (Fma/CMC/[facility]rex) 16 U/mL 5-34 Bilirubin, Total 0.8 mg/dL 0.2-1.3 Lipid Profile ([facility]) 05/09/2002 [facility] Cholesterol 199 mg/dL 120 -200 (607)- - Triglyceride 102 mg/dL 30-200 HDL-Chol 66 30-85 LDL-Calculated ([facility]) 112 CALC 0-129 VLDL 20 0-50 HDL Risk Factor ([facility]) 3.0 CALC Low 4.2-7.0 Laboratory test finding 05/09/2002 [facility] TSH 1.61 uIU/ml 0.5- 6.0 (607)- - Basic Metabolic (a) 11/04/1999 [facility] BUN 10 mg/dL 10- (607)- - Calcium 9.5 mg/dL RH 7.4-9.2 Creatinine 0.5 mg/dL RL 0.6-1.4 Glucose 81 mg/dL 70 - 118 Sodium 143 134-149 Potassium 4.6 mEq/L 3.6-5.5 Chloride 102 mEq/L 94-112 Co2 28 21-32 CBC With Diff ([facility]) 11/04/1999 [facility] WBC 6.9 /Hpf 3.6 - 9.6 (607)- - Lymphocytes 15.8 % Low 20.5 - 51.1 Monocytes 2.7 % 1.7 - 9.3 Granulocytes 81.5 % High 42.2 - 75.2 Lymphocytes 1.1 10^3/uL 0.7 - 4.9 Monocytes 0.2 10^3/uL 0.1 - 0.9 Granulocytes 5.6 10^3/uL 1.5 - 7.2 RBC 5.10 /Hpf 3.90 - 5.70 Hemoglobin 15.0 g/dL 12.1 - 17.2 Hematocrit 44.2 % 36.1 - 50.3 Mean Corpuscular Vol 86.8 fl 82.2 - 97.4 Mean Corpuscular Hemaglobin 29.4 pg 27.6 - 33.3 Mean Corpuscular Hemo Concen 33.8 g/dL 33.0 - 34.8 RDW 13.3 % 11.6 - 13.7 Platelets 268 10^3/ul 150-400 Mean Platelet Volume 7.7 fl 7.4 - 10.4 Laboratory test finding 11/04/1999 [facility] TSH 1.45 uIU/ML 0.4- 4.2 (607)- - 1 RESULTS VERIFIED BY REPEAT ANALYSIS 2 RESULTS VERIFIED BY REPEAT ANALYSIS 3 RESULTS VERIFIED BY REPEAT ANALYSIS 4 FASTING 5 consistent w/ previous results 6 RUN DATE: 04/25/14 [facility] LAB LIVE PAGE 1 RUN TIME: [address] [place], [place] [address] Specimen Inquiry Name: AUGUSTINNEDRA : [address]: Marco A Hawkins MD Acct: [id number] Unit: [id number] AGE: 58 Location: THYROID Re04/25/14 SEX: F Status: REG REF SPEC: [id number] JACINTO: 04/25/14-[address] [facility] [address]: Troy Mendez MD REQ: [id number] RECD: 04/25/14-1114 STATUS: THEODORE GALLO DR: Marco A Gutierrez MD _ ORDERED: FN ASP DEEP, FNA IMMEDIATE S FINAL DIAGNOSIS Thyroid, left inferior, Ultrasound guided, fine needle aspiration: Benign thyroid nodule-colloid hyplastic type The specimen demonstrates abundant watery colloid, a abundant amount of benign appearing follicular epithelium arranged in uniform sheets, medium sized follicles and only occasional small groups. No features of papillary carcinoma are seen. In this clinical setting the risk of malignancy is less than 3%. Clinical management of this thyroid nodule should be based on clinical and radiographic features as well as the above. THYROID LEFT - US GUIDED FINE NEEDLE ASPIRATION CLINICAL HISTORY Left inferior 1.8x 1.0x .9cm CONTINUED ON NEXT PAGE * ML=Testing performed at Main Lab DEPARTMENT OF PATHOLOGY, [facility] [employer] Top-Level Domain [place] [address] Osito Goldman M.D. Director [facility] # [id number] RUN DATE: 04/25/14 [facility] LAB LIVE PAGE 2 RUN TIME: [address] [facility] [employer] [place], [place] [address] Specimen Inquiry Patient: NEDRA RUFFIN [id number] (Continued) IMMEDIATE INTERPRETATION (Continued) IMMEDIATE INTERPRETATION Pass 1- adequate GROSS DESCRIPTION 4- alcohol fixed slide(s) 1 - passes Needle rinse in Cytolyt solution for thin layer non-malter operator test. Signed (signature on file) Brenna Donohue MD 1102 END OF REPORT * ML=Testing performed at Main Lab DEPARTMENT OF PATHOLOGY, [facility] [employer] Top-Level Domain [place], [place] [address] Osito Goldman M.D. Director [facility] # [id number] REFRIGERATED~1 POUR OFF TUBE WITH SERUM FROM RED TOP TUBE ~~1044.REFRIGERATED~1 POUR OFF TUBE WITH SERUM FROM RED TOP TUBE 8 REFRIGERATED 1 POUR OFF TUBE WITH SERUM FROM RED TOP TUBE 9 REFERENCE VALUE Athyrotic <0.1 Intact Thyroid <=33 10 Thyroglobulin (Tg) levels must be interpreted in the context of TSH levels, serial Tg measurements and radioiodine ablation status. Tg levels of 2.1-9.9 ng/mL in athyrotic individuals on suppressive therapy indicate an increased risk of clinically detectable recurrent papillary/follicular thyroid cancer. ADDITIONAL INFORMATION PLEASE NOTE: Thyroglobulin flagging is based on athyrotic reference values. The thyroglobulin and thyroglobulin antibody testing methods are immunoenzymatic assays manufactured by [employer] and performed on the [employer] DXI 800. Values obtained from different assay methods or kits may be different and cannot be used interchangeably. The results cannot be interpreted as absolute evidence for the presence or absence of malignant disease. Test Performed by: [address] [address] Hardboard Panel Printer: Victor M Huizar M.D. 11 RESULTS VERIFIED BY REPEAT ANALYSIS 12 RESULTS VERIFIED BY REPEAT ANALYSIS 13 result karena'd 14 result karena'd 15 called her with results and had her start otc iron bid to recheck her cbc in 2months 16 LMP: 04-03-02 POSSIBLY STARTING NOW Procedures Date Code Description Status 03/28/2018 [id number] Mammogram Completed 06/14/2016 [id number] Mammogram Completed 12/29/2013 [id number] Mammogram Completed 08/29/2012 [id number] Mammogram Completed 01/22/2011 [id number] Colonoscopy Completed 05/09/2002 [id number] Electrocardiogram Complete Completed Encounters Type Date Location Provider Dx Diagnosis Office Visit 01/23/2018 [facility] Mamadou Acosta J01.00 Acute maxillary 10:40a MD Raffi sinusitis, unspecified Office Visit 11/03/2017 [facility] Aretha Simons Z00.00 Encntr for general 1:00p Jarrell Gutierrez adult medical exam w/o abnormal findings I10 Essential (primary) hypertension L40.8 Other psoriasis F41.9 Anxiety disorder, unspecified K58.0 Irritable bowel syndrome with diarrhea 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, bilateral, stage unspecified B07.9 Viral wart, unspecified J01.80 Other acute sinusitis Office Visit 04/26/2016 9:45a [facility] SWETA PrinceP R05 Cough R53.83 Other fatigue R51 Headache Office Visit 02/12/2016 1:00p [facility] Shane Lucia01.90 Acute sinusitis, AR MANAGER 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 Office Visit 08/14/2015 1:45p [facility] Maribel Estrada J01.90 Acute sinusitis, AR MANAGER unspecified Office Visit 06/03/2015 3:00p [facility] Aretha Simons K58.0 Irritable bowel Jarrell Gutierrez syndrome with diarrhea F43.22 Adjustment disorder with anxiety Office Visit 04/01/2015 9:40a [facility] Aretha Simons K58.0 Irritable bowel Jarrell Gutierrez syndrome with diarrhea E55.9 Vitamin D deficiency, unspecified Office Visit 01/28/2015 9:00a [facility] Aretha Simons Z00.00 Encntr for Jarrell Gutierrez general adult medical exam w/o abnormal findings E55.9 Vitamin D deficiency, unspecified I10 Essential (primary) hypertension F41.9 Anxiety disorder, unspecified K58.0 Irritable bowel syndrome with diarrhea L40.8 Other psoriasis Office Visit 11/29/2014 8:15a [facility] Brenna 461.0 Sinusitis Acute Ke[place], AR MANAGER Maxillary 477.8 Rhinitis Allergic Due To Other Allergen Office Visit 09/20/2014 1:45p [facility] Julianne Sullivan, 461.0 Sinusitis Acute REVENUE MANAGER Maxillary Office Visit 03/19/2014 9:40a [facility] Aretha Simons v04.81 Need For Jarrell Gutierrez Prophylactic Vaccination & Inoculation/Influen za 401.1 Hypertension Benign 300.00 Anxiety State Unspec 564.1 Irritable Bowel Syndrome 530.81 Esophageal Reflux 246.9 Thyroid Disorders Unspec 787.21 Dysphagia, Oral Phase Office Visit 05/16/2013 10:30a [facility] Jena Crane, 461.9 Sinusitis Acute Afnp-C Unspec 564.1 Irritable Bowel Syndrome Office Visit 03/16/2013 9:00a [facility] Aretha Simons V70.0 Examination Jarrell Gutierrez General Medical Routine [facility] 401.9 Hypertension Unspec 300.00 Anxiety State Unspec 564.1 Irritable Bowel Syndrome 530.81 Esophageal Reflux 477.8 Rhinitis Allergic Due To Other Allergen Office 12/20/2012 [facility] Brenna v04.81 Need For Prophylactic Visit 8:00a Office Keanu, AR MANAGER Vaccination & Inoculation/Influenza 300.00 Anxiety State Unspec 311 Depressive Disorder Not Elsewhere Spec 564.1 Irritable Bowel Syndrome Office Visit 11/20/2012 6:10p Main Office Aretha Simons 564.1 Irritable Bowel Jarrell Gutierrez Syndrome Office Visit 11/08/2012 8:00a [facility] Brenna 300.00 Anxiety State Keanu, AR MANAGER Unspec 311 Depressive Disorder Not Elsewhere Spec 564.1 Irritable Bowel Syndrome Office Visit 04/25/2012 10:00a [facility] Office Mamadou Aponte Pharyngitis Acute Jarrell Gallagher Office Visit 01/13/2012 9:45a [facility] Office Jena Crane, 401.9 Hypertension Afnp-C Unspec 780.79 Malaise And Fatigue Other 300.00 Anxiety State Unspec 530.81 Esophageal Reflux 696.1 Psoriasis Other 272.2 Hyperlipidemia Mixed Office Visit 10/28/2011 10:45a [facility] Office Jena Crane, 723.5 Torticollis Unspec Afnp-C Office Visit 04/23/2011 3:00p [facility] Office Esequiel Conway 401.9 Hypertension Jarrell Salter Unspec 461.0 Sinusitis Acute Maxillary Office Visit 01/08/2011 10:20a [facility] Marixa Avalos 401.9 Hypertension Office Jarrell Sanders Unspec 333.1 Tremor Essential & Other Forms 790.21 Impaired Fasting Glucose 726.90 Enthesopathy Unspec Site Office Visit 12/04/2010 8:00a [facility] Marixa Avalos 401.9 Hypertension Office Jarrell Sanders Unspec V70.0 Examination General Medical Routine AT Health Care Facility 300.00 Anxiety State Unspec 333.1 Tremor Essential & Other Forms 622.7 Mucous Polyp Cervix Office Visit 12/29/2009 10:50a [facility] Office Nikkie Ellis 789.04 Pain Abdominal Jarrell Stewart Left Lower Quadrant V04.81 Need For Prophylactic Vaccination & Inoculation/Influenza Office Visit 05/23/2008 2:40p [facility] Office Mark West, 461.9 Sinusitis Acute Jarrell Unspec 465.9 URI Upper Respiratory Infections Acute Unspec Sites 401.9 Hypertension Unspec Office Visit 04/09/2008 10:00a [facility] Office Mamadou Lazo 461.9 Sinusitis Acute Jarrell Gallagher Unspec Office Visit 02/14/2008 9:00a [facility] Maribel Estrada, 461.9 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 Office Visit 07/04/2007 9:45a [facility] Vangie 465.9 URI Upper [place], Respiratory Afnp-C Infections Acute Unspec Sites 477.8 Rhinitis Allergic Due To Other Allergen Office Visit 02/04/2007 12:40p Main Office Darrell Ayala 729.5 Pain In Limb Jarrell Eid Office Visit 05/24/2006 4:15p Main Office Maribel Estrada 729.5 Pain In Limb AR MANAGER Office Visit 01/04/2006 11:30a [facility] Vangie 461.9 Sinusitis Acute [place], Unspec Afnp-C Office Visit 08/31/2005 10:00a [facility] Brenna goetz 401.9 Hypertension Jarrell Guzman Unspec Office Visit 08/12/2005 11:20a [facility] Brenna goetz 401.9 Hypertension Jarrell Guzman Unspec Office Visit 06/04/2005 9:30a [facility] Vangie 465.9 URI Upper [place], Respiratory Afnp-C Infections Acute Unspec Sites 464.00 Acute Laryngitis, Without Mention Of Obstruction Office Visit 03/31/2005 5:10p Main Office Brenna goetz 461.9 Sinusitis Araceli Guzman M.D. 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 Chronic Unspec Office Visit 06/02/2004 1:15p [facility] Vangie 388.70 Otalgia & [place], Earache Unspec Afnp-C 784.0 Headache Office Visit 03/24/2004 11:30a [facility] Jena Crane 461.9 Sinusitis Acute Afnp-C Unspec Office Visit 02/28/2004 10:50a Main Office Mamadou Hurtado.9 Sinusjordin Gallagher M.D. Chronic Unspec Office Visit 08/02/2003 2:30p [facility] Maribel Estrada 473.9 Sinusitis AR MANAGER Chronic Unspec Office Visit 05/28/2003 4:00p [facility] Mamadou Lazo 789.00 Pain Abdominal Jarrell Gallagher Unspec Site Office Visit 03/25/2003 11:20a [facility] Kvng Lazo 461.0 Sinusitis Acute Jarrell Lemons Maxillary 724.2 Lumbago 780.79 Malaise And Fatigue Other 280.9 Iron Deficiency Anemia Unspec Office Visit 09/12/2002 11:00a [facility] Kvng Lemons, 625.3 Dysmenorrhea Jarrell 626.4 Irregular Menstrual Cycle 789.00 Pain Abdominal Unspec Site Office Visit 05/09/2002 10:20a [facility] Naldo Quevedo, 599.7 Hematuria Jarrell V70.0 Examination General Medical Routine AT Health Care Facility 785.1 Palpitations 780.79 Malaise And Fatigue Other V76.41 Screening Malignant Neoplasm Rectum Office Visit 11/28/2001 11:10a Main Office Naldo Quevedo M.D. Office Visit 07/03/2001 3:00p [facility] Nguyễn Stokes Office Visit 02/22/2001 11:20a [facility] Naldo Quevedo M.D. Office Visit 02/07/2001 12:40p Main Office Naldo Quevedo M.D. Office Visit 11/22/2000 9:00a Main Office Nguyễn Stokes Office Visit 10/14/2000 3:00p Main Office Mark West M.D. Office Visit 11/04/1999 9:40a [facility] Naldo Quevedo M.D. Plan of Treatment 11/03/2017 - Aretha Gutierrez M.D.Z00.00 Encounter for general adult medical examination without abnormal findingsComments:You are in excellent general health. I recommend regular physical exams with attention to good nutrition and exercise, eye exams every other year, and dental exams twice yearly. Goals: 2 fresh fruits daily3 helpings of fresh green and multicolored vegetablesEat from the whole color spectrum. 40-60 Oz water dailyMOVE YOUR BODY. Bodies were made to be moved. exercise 30 minutes at least 4-5 times weeklyheel drop exercises important to keep your bones strong. calcium citrate - citrical is a goodchoice.New chapter is a better choice.Follow up:1 year or prn.I10 Essential (primary) hypertensionComments:well qqyvmhlmpyF51.8 Other psoriasisComments: well controlled.F41.9 Anxiety disorder, pwkylmcoqivK62.0 Irritable bowel syndrome with [id number] Low-tension glaucoma, bilateral, stage unspecifiedComments:continue with Dr. Beal23 Encounter for immunizationNew Medication:Shingrix 50 mcg - inject subq. repeat injection from 2-6 months after first injectionComments:tdap today.AllComments:Medication Management Patient Understands medications she's taking? Yes No Are there Barriers to Adherence? Yes No Has the patient been asked about herbal supplements and therapies, and OTC meds? Yes No
[2018-07-22 19:00] VITALS: BP 149/75
--- NOTE | 2018-07-22 19:11 | UC ---
Eye Complaint HPI - HPI Summary HPI Summary: no known injury no pain no visual deficits to left eye developed erythema yesterday t lateral aspect of conjunctiva - History of Current Complaint Chief Complaint: UCEye Stated Complaint: EYE COMPLAINT Time Seen by Provider: 07/22/18 19:05 Hx Obtained From: Patient ?: No Onset/Duration: Sudden Onset, Lasting Days - 1 Timing: Constant Pain Intensity: 0 Pain Scale Used: 0-10 Numeric Location of Injury: Conjunctiva Aggravating Factor(s): Nothing Alleviating Factor(s): Nothing Associated Signs And Symptoms: Positive: Negative - Allergies/Home Medications Allergies/Adverse Reactions: Allergies Allergy/AdvReac Type Severity Reaction Status Date / Time sertraline [From Zoloft] Allergy Altered Verified 07/22/18 19:01 Mental Status Sulfa (Sulfonamide Allergy Rash Verified 07/22/18 19:01 Antibiotics) Home Medications: Home Medications Latanoprost/Pf [Latanoprost 0.005% Eye Drop] 1 drop BOTH EYES DAILY 07/22/18 [ History Confirmed 07/22/18] PMH/Surg Hx/FS Hx/Imm Hx Previously Healthy: No Cardiovascular History: Hypertension - Surgical History Surgical History: Yes Surgery Procedure, Year, and Place: D&C - Family History Known Family History: Positive: Unknown - Social History Occupation: Employed Full-time Lives: With Family Alcohol Use: Occasionally Substance Use Type: None Smoking Status (MU): Never Smoked Tobacco Review of Systems All Other Systems Reviewed And Are Negative: Yes Constitutional: Positive: Negative Skin: Positive: Negative Eyes: Positive: Eye Redness - left lateral ENT: Positive: Negative Respiratory: Positive: Negative Cardiovascular: Positive: Negative Gastrointestinal: Positive: Negative Genitourinary: Positive: Negative Motor: Positive: Negative Neurovascular: Positive: Negative Musculoskeletal: Positive: Negative Neurological: Positive: Negative Psychological: Positive: Negative Is Patient Immunocompromised?: No Physical Exam Triage Information Reviewed: Yes Appearance: Well-Appearing, No Pain Distress, Well-Nourished Vital Signs: Initial Vital Signs Temp 98.1 F 07/22/18 18:54 Pulse 74 07/22/18 18:54 Resp 18 07/22/18 18:54 BP 149/75 07/22/18 18:54 Pulse Ox 99 07/22/18 18:54 Vital Signs Reviewed: Yes Eye Exam: Normal Eyes: Positive: Other: - perrla eomi, visual acuity wnl--- lateral left eye red , no drainage ENT Exam: Normal ENT: Positive: Normal ENT inspection, Hearing grossly normal, Pharynx normal, Uvula midline. Negative: Nasal congestion, Trismus, Muffled voice, Hoarse voice , Dental tenderness, Sinus tenderness Dental Exam: Normal Neck exam: Normal Neck: Positive: Supple, Nontender Respiratory Exam: Normal Respiratory: Positive: Chest non-tender, No respiratory distress, No accessory muscle use Cardiovascular Exam: Normal Cardiovascular: Positive: RRR, Pulses Normal, Brisk Capillary Refill Musculoskeletal Exam: Normal Musculoskeletal: Positive: Strength Intact, ROM Intact Neurological Exam: Normal Neurological: Positive: Alert Psychological Exam: Normal Skin Exam: Normal Eye Complaint Course/Dx - Course Course Of Treatment: no treatment necessay follow with pcpfor bp re-check, eye doctor prn - Differential Dx/Diagnosis Provider Diagnosis: Hypertension, Subconjunctival hemorrhage of left eye Discharge - Sign-Out/Discharge Documenting (check all that apply): Patient Departure All imaging exams completed and their final reports reviewed: No Studies - Discharge Plan Condition: Stable Disposition: HOME Patient Education Materials: Subconjunctival Hemorrhage (ED), Hypertension (ED) Referrals: Aretha Gutierrez MD [Primary Care Provider] - 2 Weeks - Billing Disposition and Condition Condition: STABLE Disposition: Home - Attestation Statements Provider Attestation: Per institutional requirements, I have reviewed the chart, however, I was not consulted specifically or made aware of this patient by the midlevel provider. I did not personally evaluate, interact with , or disposition this patient.
== END 2018-07-22 19:19 | disposition home or self-care (01) ==
LOC: UCEAST 18:50
DX: H11.32 Conjunctival hemorrhage, left eye (principal); I10 Essential (primary) hypertension; Z88.2 Allergy status to sulfonamides; Z88.8 Allergy status to other drugs, medicaments and biological substances
CPT/HCPCS: 99212; G0463